=== PATIENT | male | born 1965 | race Caucasian/White ===

== ENCOUNTER → 2019-12-22 10:47 | Outpatient (BNVA) | payer OTHER, SELFPAY | PROVIDERS: Family Provider Electrodiagnostic Medicine; PCP Nurse Practitioner Family; Visit Provider Internal Medicine | DX: Z20.828 Contact with and (suspected) exposure to other viral communicable diseases (principal) | CPT/HCPCS: 87635 ==

== ENCOUNTER 2019-12-23 10:40 | Emergency (ER) | payer OTHER, SELFPAY ==
[2019-12-23] VITALS (8 sets, daily range): BP systolic 126–137; BP diastolic 74–77; PULSE 77–91; RESP 18–33; TEMP 37.7; O2SAT 85–94; BMI 32.5
--- NOTE | 2019-12-23 10:44 | XR_ITS ---
WS: [id number] Portable AP upright chest, 12/23/2019 Clinical Data: fever Comparison: None. Findings: There are patchy opacities throughout both lungs which may represent diffuse pneumonia. No nodules, masses or effusions are seen. The heart is normal. The pulmonary vascularity is not increase d. No pneumothorax is seen. Monitor leads are on the chest wall. XR/XR chest 1V portable [id number] Impression: Patchy opacities which may represent pneumonia and recommend repeat PA and late ral chest in one to 2 days.
--- NOTE | 2019-12-23 10:51 | ED_ITS ---
HPI - SOB/Dyspnea General: Chief Complaint: Shortness of Breath/Dyspnea Stated Complaint: Fever/not feeling well Time Seen by Provider: 12/23/19 10:43 Source: patient Mode of arrival: ambulatory Limitations: no limitations History of Present Illness: HPI Narrative: 54-year-old male states he had a cough along with fever and shortness of breath for the last 6 days. He states that he went and got swab for COVID yesterday and that results are not back yet. He states today his fevers got up to 103 and has had severe shortness of breath and worsening cough. Patient is requiring 5 L of oxygen here. He is diaphoretic. He denies any vomiting. Denies any worsening or improving factors. Associated symptoms: Reports fever(s); Deny abdominal pain, chest pain, nausea or vomiting Review of Systems Const: Reports: fever(s), chills and body aches Eyes: Denies: blurry vision or eye discomfort ENMT: Denies: throat pain or dental pain Card: Denies: chest pain Resp: Reports: dyspnea and non-productive cough GI: Denies: abdominal pain, nausea, vomiting or diarrhea : Denies: dysuria Musc: Denies: neck pain or back pain Skin/Breast: Denies: rash Neuro: Denies: headache(s) Psych: Denies: depression Adolfo/Lymph: Denies: easy bruising All/Imm: Denies: urticaria Physical Exam Const: COMMON NORMALS: patient oriented x3 GENERAL APPEARANCE: in distress and ill appearing HENMT: COMMON NORMALS: normocephalic and atraumatic HEAD & SCALP: normocephalic and atraumatic Eye: COMMON NORMALS: Equal, round and reactive pupils present and EOMs intact bilaterally PUPIL: Yes Equal, round and reactive pupils present Neck/C-Spine: COMMON NORMALS: full ROM and supple Chest: COMMONS NORMALS: normal inspection of the chest and normal palpation of entire chest wall Resp: COMMON NORMALS: normal respiratory effort, No retractions and No use of accessory muscles EFFORT & INSPECTION: Yes tachypneic AUSCULTATION: rales Cardio: COMMON NORMALS: regular rate, regular rhythm and No murmurs present (Cardio) RATE: regular rate RHYTHM: regular rhythm GI: COMMON NORMALS: Normal to inspection, nondistended, normoactive bowel sounds present, Soft to palpation, non-tender and no masses PALPATION: Yes Soft to palpation Extremity: COMMON NORMALS: normal to inspection and full ROM Neuro: COMMON NORMALS: patient oriented x3, moves all extremities and no focal motor deficits Psych: COMMON NORMALS: mental status grossly normal, Normal thought process present and cooperative THOUGHT PROCESS: Normal thought process present Skin: COMMON NORMALS: no rashes or lesions noted and no wounds GENERAL SKIN EXAM: no rashes or lesions noted Course Vital Signs: Vital signs: Vital Signs Temperature 99.9 F H 12/23/19 10:41 Pulse Rate 77 12/23/19 11:31 Respiratory Rate 33 H 12/23/19 11:31 Blood Pressure 137/76 12/23/19 11:31 Pulse Oximetry 94 12/23/19 11:31 MDM - SOB/Dyspnea MDM Narrative: Medical decision making narrative: Patient presents here with cough fever and does have COVID-19. Patient is requiring 6 L of oxygen here and x-ray shows a pneumonia. Spoke to physician at in [place] and will transfer there due to bed availability. Patient has been stable while here. Lab Data: Labs: Lab Results 12/23/19 12/23/19 12/23/19 Range/Units 11:05 11:05 11:05 WBC 8.5 (4.0-10.0) 10^3/ uL RBC 4.40 (4.1-5.3) 10^6/u L Hgb 13.3 (11.7-16.6) g/dL Hct 40.0 L (42.0-52.0) % MCV 90.9 (80-94) fL MCH 30.2 (28.0-34.0) pg MCHC 33.3 (30.0-36.0) g/dL RDW 12.2 (12.1-15.1) % Plt Count 187 (130-400) 10^3/c mm MPV 9.8 (7.4-10.4) fL Neut % (Auto) 88.6 % Lymph % (Auto) 7.5 % [place] % (Auto) 3.1 % Eos % (Auto) 0.0 % Baso % (Auto) 0.2 % Neut # (Auto) 7.53 (1.8-7.7) 10^3/u L Lymph # (Auto) 0.6 L (0.8-4.8) 10^3/u L [place] # (Auto) 0.3 (0.2-0.9) 10^3/u L Eos # (Auto) 0.0 (0.0-0.8) 10^3/u L Baso # (Auto) 0.0 (0.0-0.1) 10^3/u L Nucleated RBC % (a uto) 0 % Nucleated RBCs # 0.0 /100WBC Fibrinogen 886 H (174-498) mg/dL Sodium 137 (136-145) mmol/L Potassium 3.7 (3.5-5.1) mmol/L Chloride 100 (98-107) mmol/L Carbon Dioxide 24 (22-29) mmol/L Anion Gap 16.7 (5-19) BUN 11 (6-20) mg/dL Creatinine 1.1 (0.7-1.2) mg/dL GFR Calculation 69.8 L (90-130) mL/min Glucose 205 H (65-115) mg/dL Calculated Osmolal ity 289 (285-295) mOsm/k g Lactic Acid (0.5-2.2) mmol/L Calcium 9.3 (8.5-10.5) mg/dL Ferritin 1460 H (30-400) ng/mL Total Bilirubin 0.4 (0.15-1.2) mg/dL AST 25 (0-40) U/L ALT 20 (0-41) U/L Alkaline Phosphata se 51 (40-130) IU/L C-Reactive Protein 303.7 H (0.0-4.9) mg/L NT-Pro-B Natriuret Pep 505 H (0-125) pg/mL Total Protein 7.3 (6.6-8.7) g/dL Albumin 3.8 (3.5-5.2) g/dL Globulin 3.5 (1.3-4.6) g/dL SARS-CoV-2 Ag (Rap id) (Negative) 12/23/19 12/23/19 Range/Units 11:05 11:08 WBC (4.0-10.0) 10^3/ uL RBC (4.1-5.3) 10^6/u L Hgb (11.7-16.6) g/dL Hct (42.0-52.0) % MCV (80-94) fL MCH (28.0-34.0) pg MCHC (30.0-36.0) g/dL RDW (12.1-15.1) % Plt Count (130-400) 10^3/c mm MPV (7.4-10.4) fL Neut % (Auto) % Lymph % (Auto) % [place] % (Auto) % Eos % (Auto) % Baso % (Auto) % Neut # (Auto) (1.8-7.7) 10^3/u L Lymph # (Auto) (0.8-4.8) 10^3/u L [place] # (Auto) (0.2-0.9) 10^3/u L Eos # (Auto) (0.0-0.8) 10^3/u L Baso # (Auto) (0.0-0.1) 10^3/u L Nucleated RBC % (a uto) % Nucleated RBCs # /100WBC Fibrinogen (174-498) mg/dL Sodium (136-145) mmol/L Potassium (3.5-5.1) mmol/L Chloride (98-107) mmol/L Carbon Dioxide (22-29) mmol/L Anion Gap (5-19) BUN (6-20) mg/dL Creatinine (0.7-1.2) mg/dL GFR Calculation (90-130) mL/min Glucose (65-115) mg/dL Calculated Osmolal ity (285-295) mOsm/k g Lactic Acid 2.1 (0.5-2.2) mmol/L Calcium (8.5-10.5) mg/dL Ferritin (30-400) ng/mL Total Bilirubin (0.15-1.2) mg/dL AST (0-40) U/L ALT (0-41) U/L Alkaline Phosphata se (40-130) IU/L C-Reactive Protein (0.0-4.9) mg/L NT-Pro-B Natriuret Pep (0-125) pg/mL Total Protein (6.6-8.7) g/dL Albumin (3.5-5.2) g/dL Globulin (1.3-4.6) g/dL SARS-CoV-2 Ag (Rap id) Positive H (Negative) Imaging Data^: CXR: Attestation: I personally reviewed and interpreted this imaging study as follows: Radiologist's impression: Reason: fever [address] [address] XRay Report Signed Patient: Catalino Rodriguez Unit #: [id number] : 1965 Age/Sex: 54 / M ADM Date: 12/23/19 Loc: ER Room/Bed: Attending Dr: Ordering Provider/Ordering MD: Sung Sena MD Date of Service: 12/23/19 Procedure(s): XR chest 1V portable [id number] Accession Number(s): [id number] Report Number: [id number] WS: [id number] Portable AP upright chest, 12/23/2019 Clinical Data: fever Comparison: None. Findings: There are patchy opacities throughout both lungs which may represent diffuse pneumonia. No nodules, masses or effusions are seen. The heart is normal. The pulmonary vascularity is not increased. No pneumothorax is seen. Monitor leads are on the chest wall. XR/XR chest 1V portable [id number] Impression: Patchy opacities which may represent pneumonia and recommend repeat PA and lateral chest in one to 2 days. Critical Care Time Critical Care Time: Critical Care Time: Yes Total Critical Care Time: 35 Attestation: This case had a high probability of a clinically significant, sudden, or life threatening deterioration of this patient's condition which required my full and direct attention, intervention and personal management. Discharge Plan Discharge Patient Disposition: Xfer Other Clinical Impression: COVID-19 Condition: Stable Referrals: Ellis Romero DO [Primary Care Provider] - Coding Level of Care Code ED Stringed Instrument Tuner for Chg Fwd Exam Comprehensive
[2019-12-23] MEDS: sodium chloride 0.9% 1,000 ML 999 ML IV ×2 (11:16→12:28)
[2019-12-23] MEDS: dexamethasone 10 mg/mL INJ IVP (11:18)
[2019-12-23] MEDS: acetaminophen 325 mg Tablet 650 MG PO (11:18)
[2019-12-23 11:23] LABS: Basophils % 0.2 %; Hemoglobin 13.3 g/dL (11.7-16.6); Lymphocytes # 0.6 10^3/uL (0.8-4.8); Lymphocytes % 7.5 %; Mean Corpuscular HGB Conc 33.3 g/dL (30.0-36.0); Mean Corpuscular Hemoglobin 30.2 pg (28.0-34.0); Mean Corpuscular Volume 90.9 fL (80-94); Mean Platelet Volume 9.8 fL (7.4-10.4); Monocytes # 0.3 10^3/uL (0.2-0.9); Monocytes % 3.1 %; Neutrophils # 7.53 10^3/uL (1.8-7.7); Neutrophils % 88.6 %; Nucleated Red Blood Cells % 0 %; Platelet Count 187 10^3/cmm (130-400); Red Cell Distribution Width 12.2 % (12.1-15.1); White Blood Count 8.5 10^3/uL (4.0-10.0)
[2019-12-23 11:41] LABS: Fibrinogen 886 mg/dL (174-498)
[2019-12-23 11:42] LABS: SARS Covid-2 Antigen Positive (Negative)
[2019-12-23 11:51] LABS: Lactic Sepsis W/Reflex 2.1 mmol/L (0.5-2.2)
[2019-12-23 11:55] LABS: Alanine Aminotransferase 20 U/L (0-41); Albumin Level 3.8 g/dL (3.5-5.2); Alkaline Phosphatase 51 IU/L (40-130); Anion Gap 16.7 (5-19); Aspartate Amino Transferase 25 U/L (0-40); Blood Urea Nitrogen 11 mg/dL (6-20); C Reactive Protein 303.7 mg/L (0.0-4.9); Calcium 9.3 mg/dL (8.5-10.5); Carbon Dioxide 24 mmol/L (22-29); Chloride 100 mmol/L (98-107); Globulin 3.5 g/dL (1.3-4.6); Glomerular Filtration Rate 69.8 mL/min (90-130); Glucose 205 mg/dL (65-115); NT Pro B Type Natriuretic Pept 505 pg/mL (0-125); Osmolality Calculated 289 mOsm/kg (285-295); Potassium 3.7 mmol/L (3.5-5.1); Sodium 137 mmol/L (136-145); Total Bilirubin 0.4 mg/dL (0.15-1.2); Total Protein 7.3 g/dL (6.6-8.7)
[2019-12-23 12:11] LABS: Ferritin 1460 ng/mL (30-400)
[2019-12-23] MEDS: cefTRIAXone 1,000 MG in sodium chloride 0.9% (plus) 50 ML 100 MG IV (12:26)
--- NOTE | 2019-12-23 12:26 | PC.NURSE ---
Read and agree with assessment
[2019-12-23 13:07] LABS: Reflex Lactate Order REFLEX LACTIC ORDERD
[2019-12-23] MEDS: azithromycin 500 MG in sodium chloride 0.9% 250 ML 250 MG IV (13:14)
[2019-12-23 13:35] LABS: Influenza A by IFA Negative (Negative); Influenza B by IFA Negative (Negative)
== END 2019-12-23 15:13 | disposition other institution (70) ==
PROVIDERS: Emergency Provider Emergency Medicine; PCP Electrodiagnostic Medicine
DX: U07.1 COVID-19 (principal)
CPT/HCPCS: 12345; 71045; 80053; 82728; 83605; 83880; 85025; 85384; 86140; 87040; 87205; 87426; 87804; 96365; 96366; 96367; 96375; 99284; 99291; J0456; J0696; J1100; J7030; J7050

== ENCOUNTER → 2020-07-27 11:15 | Outpatient (BNVA) | payer SELFPAY | PROVIDERS: PCP Family Medicine Adult Medicine; Visit Provider Family Medicine Adult Medicine | DX: R94.4 Abnormal results of kidney function studies (principal); R09.81 Nasal congestion; R73.09 Other abnormal glucose | CPT/HCPCS: 80053; 83036; 85025 ==

== ENCOUNTER 2020-12-07 19:20 | Emergency (ER) | payer SELFPAY ==
[2020-12-07 19:44] VITALS: BP 146/96; PULSE 85; RESP 16; TEMP 36.7; O2SAT 95; BMI 32.5
--- NOTE | 2020-12-07 19:51 | ECG_ITS ---
[facility] Test Date: 2020-12-07 Pat Name: Catalino Rodriguez Department: Room: Gender: Male Applications Intern: : 1965 Requested By: Marium Morrissey Order Number: [id number] Sofie MD: Jose Juan Navarro M.D. Measurements Intervals [place] Rate: 76 P: 32 MT: 171 QRS: -48 QRSD: 105 T: 15 QT: 345 QTc: 389 Interpretive Statements SINUS RHYTHM LEFT ANTERIOR FASCICULAR BLOCK [QRS AXIS <= -45, QR IN I, RS IN II] POSSIBLE ANTERIOR MYOCARDIAL INFARCTION [30 ms Q WAVE IN V3/V4, OR R < 0.2 mV IN V4], OF INDETERMINATE AGE No previous ECG available for comparison Electronically Signed On 12-08-2020 20:34:31 CDT by Jose Juan Navarro M.D. [email or web address]/[id number] f
--- NOTE | 2020-12-07 20:45 | W.ED.GENADLT ---
HPI - General Adult General: Chief complaint: General Medical Stated complaint: Pain In Back and Rt Side Time Seen by Provider: 12/07/20 20:44 History of Present Illness: HPI narrative: 55-year-old male patient comes in today with complaints of malaise. Patient has a history of COVID-19 in 2020 approximately 1 year ago. At that time patient did get bilateral pulmonary emboli's. Since then patient has been doing well up until the last week. Patient started feeling weak and worn out. It was also noted patient had some linear ecchymotic areas to his back. Patient comes in today due to persistent weakness and feeling of fatigue. Patient is concerned they may have developed another pulmonary embolism. Patient appears mildly unwell and nontoxic. Patient appears in no pain. Patient just reports fatigue and weakness. The only medication patient routinely takes is at 325 aspirin for the last week. Associated symptoms: Reports malaise and rash Review of Systems General: Reports: 10 or more systems reviewed and unremarkable except in HPI and below Const: Reports: malaise Skin/Breast: Reports: rash PFSH ED PFSH: Medical History (Updated 12/07/20 @ 22:59 by ERROL Warner) Chronic nasal congestion Decreased calculated GFR Elevated glucose level Obesity (BMI 30.0-34.9) Family History Other Cancer Thyroid disease Social History Smoking and tobacco status: never smoked Alcohol intake: never Marital status: Number of children: 1 Current occupational status: retired Physical Exam Const: COMMON NORMALS: no acute distress and patient oriented x3 GENERAL APPEARANCE: cooperative HENMT: COMMON NORMALS: normocephalic, TM's normal bilaterally and Normal external nose present HEAD & SCALP: normal to inspection and normocephalic NOSE: Normal external nose present TYMPANIC MEMBRANE: TM's normal bilaterally MOUTH: Normal oral and palatal mucosa present THROAT: posterior oropharynx normal Eye: GENERAL EYE: appearance normal, both eyes and all related structures Neck/C-Spine: COMMON NORMALS: full ROM Lymph: LYMPHATIC: no lymphadenopathy noted Chest: COMMONS NORMALS: normal inspection of the chest Resp: COMMON NORMALS: normal respiratory effort EFFORT & INSPECTION: Yes able to speak in complete sentences Cardio: COMMON NORMALS: regular rate and regular rhythm RATE: regular rate RHYTHM: regular rhythm GI: COMMON NORMALS: non-tender : COMMON NORMALS: Yes no CVA tenderness BLADDER/KIDNEY EXAM: Yes no CVA tenderness Back/Pelvis: COMMON NORMALS: no CVA tenderness and thoracic and lumbar spine normal to inspection Extremity: COMMON NORMALS: normal to inspection Neuro: COMMON NORMALS: patient oriented x3 and moves all extremities Psych: COMMON NORMALS: mental status grossly normal and cooperative Skin: NARRATIVE SKIN EXAM: Light resolving linear pattern to the back. Patient did have a photo of ecchymotic linear pattern to the back which I evaluated from 1 week ago. Course Vital Signs: Vital signs: Vital Signs Temperature 98.1 F 12/07/20 19:44 Pulse Rate 85 12/07/20 19:44 Respiratory Rate 16 12/07/20 19:44 Blood Pressure 146/96 12/07/20 19:44 Pulse Oximetry 95 12/07/20 19:44 MDM - General Adult MDM Narrative: Medical decision making narrative: 55-year-old male patient comes in today with complaints of fatigue. Patient also last week had areas to his back that were ecchymotic that appeared to be scratches, that has been resolved. Patient said since rash had been there and now is resolved he has felt bad. On exam respirations are even lungs are clear to auscultation. Skin was warm and dry. Vital signs were normal. Differential diagnosis includes COVID-19, anemia, ACS, PE. Patient was really concerned that he may have been developing another pulmonary emboli. D-dimer was performed and was 0.3, which is considered negative on her lab. Troponin was 7 which is also in the negative range for our lab. SARS Covid 2 test was negative. And CBC and CMP were unremarkable except for elevated glucose at 192 and a sodium of 135. When questioned about him on diabetes he does state that he does run an elevated blood glucose often. I suggest the patient follow-up with his primary care to discuss further treatment options for hyperglycemia and also to consider other testing such as a thyroid panel or possibly a tick panel. Although at this time his blood count and his liver enzymes does not really indicate a tick borne illness. I recommended patient drink plenty of fluids eat a healthy diet and follow-up with primary care for further testing. Patient reported understanding and agreed to plan with understanding to return for worsening symptoms or new concerns. Lab Data: Labs: Lab Results 12/07/20 12/07/20 12/07/20 Range/Units 21:00 21:00 21:00 WBC 7.9 (4.0-10.0) 10^3/ uL RBC 5.19 (4.1-5.3) 10^6/u L Hgb 15.7 (11.7-16.6) g/dL Hct 46.4 (42.0-52.0) % MCV 89.4 (80-94) fl MCH 30.3 (28.0-34.0) pg MCHC 33.8 (30.0-36.0) g/dL RDW 12.3 (12.1-15.1) % Plt Count 309 (130-400) 10^3/c mm MPV 10.2 (7.4-10.4) fL Neut % (Auto) 58.2 % Lymph % (Auto) 29.3 % [place] % (Auto) 10.2 % Eos % (Auto) 0.8 % Baso % (Auto) 0.9 % Neut # (Auto) 4.61 (1.8-7.7) 10^3/u L Lymph # (Auto) 2.3 (0.8-4.8) 10^3/u L [place] # (Auto) 0.8 (0.2-0.9) 10^3/u L Eos # (Auto) 0.1 (0.0-0.8) 10^3/u L Baso # (Auto) 0.1 (0.0-0.1) 10^3/u L Nucleated RBC % (a uto) 0 % Nucleated RBCs # 0.0 /100WBC D-Dimer 0.32 (0-0.59) ug/mIFE U Sodium 135 L (136-145) mmol/L Potassium 4.1 (3.5-5.1) mmol/L Chloride 100 (98-107) mmol/L Carbon Dioxide 24 (22-29) mmol/L Anion Gap 15.1 (5-19) BUN 13 (6-20) mg/dL Creatinine 0.8 (0.7-1.2) mg/dL GFR Calculation 100.4 (90-130) mL/min Glucose 192 H (65-115) mg/dL Calculated Osmolal ity 285 (285-295) mOsm/k g Calcium 9.2 (8.5-10.5) mg/dL Total Bilirubin 0.3 (0.15-1.2) mg/dL AST 17 (0-40) U/L ALT 34 (0-41) U/L Alkaline Phosphata se 97 (40-130) IU/L Troponin T Gen 5 n g/L (0-15) ng/L Total Protein 7.6 (6.6-8.7) g/dL Albumin 4.6 (3.5-5.2) g/dL Globulin 3.0 (1.3-4.6) g/dL SARS-CoV-2 Ag (Rap id) (Negative) 12/07/20 12/07/20 Range/Units 21:00 21:40 WBC (4.0-10.0) 10^3/ uL RBC (4.1-5.3) 10^6/u L Hgb (11.7-16.6) g/dL Hct (42.0-52.0) % MCV (80-94) fl MCH (28.0-34.0) pg MCHC (30.0-36.0) g/dL RDW (12.1-15.1) % Plt Count (130-400) 10^3/c mm MPV (7.4-10.4) fL Neut % (Auto) % Lymph % (Auto) % [place] % (Auto) % Eos % (Auto) % Baso % (Auto) % Neut # (Auto) (1.8-7.7) 10^3/u L Lymph # (Auto) (0.8-4.8) 10^3/u L [place] # (Auto) (0.2-0.9) 10^3/u L Eos # (Auto) (0.0-0.8) 10^3/u L Baso # (Auto) (0.0-0.1) 10^3/u L Nucleated RBC % (a uto) % Nucleated RBCs # /100WBC D-Dimer (0-0.59) ug/mIFE U Sodium (136-145) mmol/L Potassium (3.5-5.1) mmol/L Chloride (98-107) mmol/L Carbon Dioxide (22-29) mmol/L Anion Gap (5-19) BUN (6-20) mg/dL Creatinine (0.7-1.2) mg/dL GFR Calculation (90-130) mL/min Glucose (65-115) mg/dL Calculated Osmolal ity (285-295) mOsm/k g Calcium (8.5-10.5) mg/dL Total Bilirubin (0.15-1.2) mg/dL AST (0-40) U/L ALT (0-41) U/L Alkaline Phosphata se (40-130) IU/L Troponin T Gen 5 n g/L 7 (0-15) ng/L Total Protein (6.6-8.7) g/dL Albumin (3.5-5.2) g/dL Globulin (1.3-4.6) g/dL SARS-CoV-2 Ag (Rap id) Negative (Negative) Discharge Plan Discharge Patient Disposition: Home Clinical Impression: Malaise and fatigue, Hyperglycemia Condition: Stable Prescriptions: No Action aspirin 325 mg tablet 325 mg PO BID RF: 0 fluticasone propionate [Allergy Relief (fluticasone)] 50 mcg/actuation spray,suspension 1 spray intranasal BID Qty: 16 RF: 5 Discharge Orders: Discharge ED (Routine); Ordered 12/07/20 Ordered By: Robert Bautista Referrals: Yash Giles MD [Primary Care Provider] - Discharge Diet: Usual diet Discharge Activity: Increase activity as tolerated Patient Instructions: Hyperglycemia, Non-Diabetic (ED), Opioid Safety Activity Restrictions/Additional Instructions: Home and rest. Drink plenty of water. Follow-up with primary care for further evaluation and instructions. Return to the ER for high fever, increasing shortness of breath, or new concerns. Coding Level of Care Code ED Converting Technician for Chg Fwd Exam Comprehensive
--- NOTE | 2020-12-07 20:56 | XRR_ITS ---
PROCEDURE INFORMATION: Exam: XR Chest Exam date and time: 12/07/2020 8:56 PM Age: 55 years old Clinical indication: Other: Weakness; Patient HX: Pain in back radiating from left to right. HX blood clots TECHNIQUE: Imaging protocol: XR of the chest. Views: 1 view. COMPARISON: CR XR chest 1V portable [id number] 12/23/2019 11:19 AM FINDINGS: Lungs: Unremarkable. No consolidation. Pleural spaces: Unremarkable. No pleural effusion. No pneumothorax. Heart/Mediastinum: Unremarkable. No cardiomegaly. Bones/joints: Unremarkable. XR/XR chest 1V portable [id number] IMPRESSION: No acute findings.
[2020-12-07 21:33] LABS: Basophils # 0.1 10^3/uL (0.0-0.1); Basophils % 0.9 %; Eosinophils # 0.1 10^3/uL (0.0-0.8); Eosinophils % 0.8 %; Hematocrit 46.4 % (42.0-52.0); Hemoglobin 15.7 g/dL (11.7-16.6); Lymphocytes # 2.3 10^3/uL (0.8-4.8); Lymphocytes % 29.3 %; Mean Corpuscular HGB Conc 33.8 g/dL (30.0-36.0); Mean Corpuscular Hemoglobin 30.3 pg (28.0-34.0); Mean Corpuscular Volume 89.4 fl (80-94); Mean Platelet Volume 10.2 fL (7.4-10.4); Monocytes # 0.8 10^3/uL (0.2-0.9); Monocytes % 10.2 %; Neutrophils # 4.61 10^3/uL (1.8-7.7); Neutrophils % 58.2 %; Nucleated Red Blood Cells % 0 %; Platelet Count 309 10^3/cmm (130-400); Red Blood Count 5.19 10^6/uL (4.1-5.3); Red Cell Distribution Width 12.3 % (12.1-15.1); White Blood Count 7.9 10^3/uL (4.0-10.0)
[2020-12-07 22:09] LABS: D Dimer 0.32 ug/mIFEU (0-0.59)
[2020-12-07 22:15] LABS: Alanine Aminotransferase 34 U/L (0-41); Albumin Level 4.6 g/dL (3.5-5.2); Alkaline Phosphatase 97 IU/L (40-130); Anion Gap 15.1 (5-19); Aspartate Amino Transferase 17 U/L (0-40); Blood Urea Nitrogen 13 mg/dL (6-20); Calcium 9.2 mg/dL (8.5-10.5); Carbon Dioxide 24 mmol/L (22-29); Chloride 100 mmol/L (98-107); Glomerular Filtration Rate 100.4 mL/min (90-130); Glucose 192 mg/dL (65-115); Osmolality Calculated 285 mOsm/kg (285-295); Potassium 4.1 mmol/L (3.5-5.1); Sodium 135 mmol/L (136-145); Total Bilirubin 0.3 mg/dL (0.15-1.2); Total Protein 7.6 g/dL (6.6-8.7)
[2020-12-07 22:33] LABS: Troponin T (5th) Once 7 ng/L (0-15)
[2020-12-07 22:55] LABS: SARS Covid-2 Antigen Negative (Negative)
[2020-12-07 23:06] VITALS: BP 129/84; PULSE 96; RESP 18; O2SAT 98
== END 2020-12-07 23:06 | disposition home or self-care (01) ==
PROVIDERS: Emergency Provider Nurse Practitioner Family; PCP Family Medicine Adult Medicine
DX: R53.81 Other malaise (principal); R73.9 Hyperglycemia, unspecified; Z79.82 Long term (current) use of aspirin; Z20.822 Contact with and (suspected) exposure to COVID-19
CPT/HCPCS: 36415; 71045; 80053; 84484; 85025; 85378; 87426; 93005; 99283

== ENCOUNTER → 2023-05-13 15:56 | Outpatient (BNVA) | payer OTHER, SELFPAY | PROVIDERS: PCP Family Medicine Adult Medicine; Visit Provider Emergency Medicine | DX: J06.9 Acute upper respiratory infection, unspecified (principal); J20.8 Acute bronchitis due to other specified organisms; B96.89 Other specified bacterial agents as the cause of diseases classified elsewhere | CPT/HCPCS: 87400 ==